=== PATIENT | male | born 1955 ===

== ENCOUNTER → 2023-02-09 | Day surgery (SDC) | payer OTHER | END | disposition home or self-care (01) | LOC: ADM 02-07 13:00 → AMB-ENDOS 06:28 | PROVIDERS: ATTEND Surgery | DX: D12.3 Benign neoplasm of transverse colon (principal); K92.1 Melena; Z20.822 Contact with and (suspected) exposure to COVID-19 ==

== ENCOUNTER 2023-04-03 10:07 | Inpatient (IN) | payer OTHER ==
[~2023-04-03] VITALS: Ht 152.4 cm; Wt 63.0 kg
[2023-04-03] MEDS ORDERED: DICLO PO (14:14)
[2023-04-03] MEDS ORDERED: GEMFIBROZIL1 GM PO (14:14)
[2023-04-03] MEDS ORDERED: CILOSTAZOL100 MG PO (14:15)
[2023-04-03] MEDS ORDERED: ZEGERID 40 MG1 EACH PO (14:15)
[2023-04-07 08:12] LABS: CALCIUM 8.4 mg/dL (8.5-10.1); CREATININE SERUM 0.68 mg/dL (0.70-1.30); GFR 115.62; PHOSPHOROUS 2.9 mg/dL (2.5-4.9); POTASSIUM 3.81 mEq/L (3.5-5.1)
[2023-04-07 09:11] LABS: HEMATOCRIT 40.1 % (39.0-48.0); HEMOGLOBIN 13.8 g/dL (13-16.00); MEAN CELL VOLUME 93.2 fL (80.0-100.00); MEAN CORPUSCULAR HEMOGLOBIN 32.1 pg (27.00-32.0); MEAN CORPUSCULAR HGB CONC 34.4 g/dl (32.0-36.0); PLATELET COUNT 298 K/uL (150-450); RED CELL DISTRIBUTION WIDTH 14.9 % (11.5-14.5)
[2023-04-07 10:09] LABS: MAGNESIUM 1.3 mg/dL (1.8-2.4)
[2023-04-08 06:40] LABS: HEMATOCRIT 42.6 % (39.0-48.0); HEMOGLOBIN 13.8 g/dL (13-16.00); MEAN CELL VOLUME 94.1 fL (80.0-100.00); MEAN CORPUSCULAR HEMOGLOBIN 30.5 pg (27.00-32.0); MEAN CORPUSCULAR HGB CONC 32.5 g/dl (32.0-36.0); PLATELET COUNT 299 K/uL (150-450); RED BLOOD COUNT 4.53 M/uL (4.00-6.00); RED CELL DISTRIBUTION WIDTH 14.8 % (11.5-14.5)
[2023-04-08 07:18] LABS: CALCIUM 8.3 mg/dL (8.5-10.1); CREATININE SERUM 0.81 mg/dL (0.70-1.30); GFR 94.48; MAGNESIUM 1.8 mg/dL (1.8-2.4); PHOSPHOROUS 2.4 mg/dL (2.5-4.9); POTASSIUM 4.13 mEq/L (3.5-5.1)
[2023-04-09 18:14] LABS: CALCIUM 8.4 mg/dL (8.5-10.1); CREATININE SERUM 0.59 mg/dL (0.70-1.30); GFR 136.2; POTASSIUM 3.22 mEq/L (3.5-5.1)
[2023-04-10 06:53] LABS: HEMATOCRIT 38.3 % (39.0-48.0); HEMOGLOBIN 12.8 g/dL (13-16.00); MEAN CELL VOLUME 93.4 fL (80.0-100.00); MEAN CORPUSCULAR HEMOGLOBIN 31.2 pg (27.00-32.0); MEAN CORPUSCULAR HGB CONC 33.4 g/dl (32.0-36.0); PLATELET COUNT 312 K/uL (150-450); RED CELL DISTRIBUTION WIDTH 14.4 % (11.5-14.5)
[2023-04-10 07:10] LABS: ALBUMIN 1.8 gm/dL (3.4-5.0); CALCIUM 8.1 mg/dL (8.5-10.1); CREATININE SERUM 0.5 mg/dL (0.70-1.30); GFR 164.87; MAGNESIUM 1.7 mg/dL (1.8-2.4); PHOSPHOROUS 2.4 mg/dL (2.5-4.9); POTASSIUM 3.54 mEq/L (3.5-5.1)
[2023-04-11 10:51] LABS: CALCIUM 8.1 mg/dL (8.5-10.1); CREATININE SERUM 0.44 mg/dL (0.70-1.30); GFR 191.08; PHOSPHOROUS 3.3 mg/dL (2.5-4.9); POTASSIUM 3.53 mEq/L (3.5-5.1)
[2023-04-14 06:52] LABS: HEMATOCRIT 35.9 % (39.0-48.0); HEMOGLOBIN 11.8 g/dL (13-16.00); MEAN CELL VOLUME 92.3 fL (80.0-100.00); MEAN CORPUSCULAR HEMOGLOBIN 30.2 pg (27.00-32.0); MEAN CORPUSCULAR HGB CONC 32.7 g/dl (32.0-36.0); PLATELET COUNT 378 K/uL (150-450); RED BLOOD COUNT 3.89 M/uL (4.00-6.00); RED CELL DISTRIBUTION WIDTH 14.3 % (11.5-14.5)
[2023-04-14 07:50] LABS: CALCIUM 8.2 mg/dL (8.5-10.1); CREATININE SERUM 0.43 mg/dL (0.70-1.30); GFR 196.21; PHOSPHOROUS 2.7 mg/dL (2.5-4.9); POTASSIUM 3.52 mEq/L (3.5-5.1)
[2023-04-16 07:06] LABS: HEMATOCRIT 34.9 % (39.0-48.0); HEMOGLOBIN 11.9 g/dL (13-16.00); MEAN CELL VOLUME 91.1 fL (80.0-100.00); MEAN CORPUSCULAR HEMOGLOBIN 31.1 pg (27.00-32.0); MEAN CORPUSCULAR HGB CONC 34.2 g/dl (32.0-36.0); PLATELET COUNT 378 K/uL (150-450); RED BLOOD COUNT 3.83 M/uL (4.00-6.00); RED CELL DISTRIBUTION WIDTH 14.7 % (11.5-14.5)
[2023-04-16 07:20] LABS: INR 1.02; PROTHROMBIN TIME 10.7 SECONDS (9.0-11.5)
[2023-04-16 07:46] LABS: ALBUMIN 2.1 gm/dL (3.4-5.0); BILIRUBIN TOTAL 0.31 mg/dL (0.3-1.2); BILIRUBIN,CONJUGATED 0.1 mg/dL (0.0-0.2); BILIRUBIN,UNCONJUGATED 0.21 mg/dL (0.0-0.6); CALCIUM 8.4 mg/dL (8.5-10.1); CHOL HDL RATIO 3.8 (0-5.0); CREATININE SERUM 0.5 mg/dL (0.70-1.30); GFR 164.87; GLOBULINA 2.9 G/DL (2.4-3.5); MAGNESIUM 1.9 mg/dL (1.8-2.4); POTASSIUM 3.8 mEq/L (3.5-5.1)
[2023-04-16 13:01] LABS: UREA CLEARANCE 36.7 ML/MIN
[2023-04-17] MEDS ORDERED: ACETAMINOPHEN500 M2 PO (11:35)
[2023-04-17] MEDS ORDERED: NEURONTIN300 MG PO (11:35)
== END 2023-04-17 17:29 | disposition home or self-care (01) | DRG 330 ==
LOC: O/R 04-06 09:55 → SURG 04-06 09:55 → SURH 04-06 11:00 → SURG 04-06 17:43 → SURH 04-06 19:45 → SURG 04-06 21:03 → SURH 04-14 14:57
PROVIDERS: Internal Medicine Geriatric Medicine; ADMIT Surgery; ATTEND Surgery
PROC: 07BC4ZX Excision of Pelvis Lymphatic, Percutaneous Endoscopic Approach, Diagnostic (ICD-10-PCS; 2023-04-06)
PROC: 0WQF4ZZ Repair Abdominal Wall, Percutaneous Endoscopic Approach (ICD-10-PCS; 2023-04-06)
PROC: 0D9680Z Drainage of Stomach with Drainage Device, Via Natural or Artificial Opening Endoscopic (ICD-10-PCS; 2023-04-06)
PROC: 3E0G76Z Introduction of Nutritional Substance into Upper GI, Via Natural or Artificial Opening (ICD-10-PCS; 2023-04-06)
PROC: 0DTF4ZZ Resection of Right Large Intestine, Percutaneous Endoscopic Approach (ICD-10-PCS; principal; 2023-04-06 19:45)
PROC: 02HV33Z Insertion of Infusion Device into Superior Vena Cava, Percutaneous Approach (ICD-10-PCS; 2023-04-09)
PROC: 0DJ08ZZ Inspection of Upper Intestinal Tract, Via Natural or Artificial Opening Endoscopic (ICD-10-PCS; 2023-04-16)
DX: D12.3 Benign neoplasm of transverse colon (principal); K92.1 Melena; K21.9 Gastro-esophageal reflux disease without esophagitis; R13.10 Dysphagia, unspecified; D64.9 Anemia, unspecified